=== PATIENT | male | born 1940 | race Caucasian/White ===

== ENCOUNTER 2016-09-25 17:54 | Emergency (ER) | payer MEDICARE, OTHER ==
[~2016-09-25] VITALS: Ht 193 cm; Wt 111.1 kg
[~2016-09-25 17:54] MED LIST: ASP325T NG; GLIP10TA13 PO; HYDR-34 PO; MTF500T PO; SERT100T8 PO
[2016-09-25] MEDS ORDERED: ASPI-586 PO (19:18)
[2016-09-25] MEDS ORDERED: ENAL20TA PO (19:18)
--- NOTE | 2016-09-25 19:54 | ED General ---
General Chief Complaint: Lower Extremity Stated Complaint: SWELLING IN L LEG, FOOT Nursing Triage Note: pt reports l foot swelling x 3 days. redness/heat noted to l foot. Nursing Sepsis Screen: No Definite Risk Source of Information: Patient Exam Limitations: No Limitations History of Present Illness Time Seen by Provider: 19:53 Initial Comments 76 yo male patient presents to the ED with c/o left foot pain, swelling, and erythema. onset 3 days ago. Location Injury Occurred: denies known injury Timing/Duration: 2-3 Days Modifying Factors: worse with Other (palpation) Allergies and Home Medications Allergies Coded Allergies: Iodinated Contrast Media - IV Dye (Unverified Adverse Reaction, Unknown, ) Home Medications Aspirin 81 Mg Tablet.dr 81 MG PO (Reported) Clindamycin HCl 300 Mg Capsule #40 300 MG PO Q6H Prescribed by: GERONIMO GANNON on 09/25/162118 Enalapril Maleate 20 Mg Tablet 20 MG PO DAILY (Reported) Glipizide 10 Mg Tablet 1 EACH PO DAILY (Reported) Metformin Hcl 500 Mg Tablet 1 EACH PO BID WITH MEALS (Reported) Oxycodone HCl/Acetaminophen 1 Each Tablet #14 1 EACH PO Q4H PRN PRN PAIN Prescribed by: GERONIMO GANNON on 09/25/162118 Sertraline Hcl 100 Mg Tablet 100 MG PO DAILY (Reported) Constitutional: chills fever malaise Respiratory: No cough, No dyspnea on exertion, No orthopnea, No short of breath , No wheezing Cardiovascular: No chest pain, No palpitations, No syncope Gastrointestinal: no symptoms reported Genitourinary: no symptoms reported Musculoskeletal: see HPI joint pain (lower extremity) Skin: see HPI change in color Psychiatric/Neurological: No Symptoms Reported All Other Systems Reviewed Negative Unless Noted: Yes (Negative excepted noted.) Past Ermmkpw-Svmqte-Ngberq Hx Patient Social History Alcohol Use: Denies Use Recreational Drug Use: No Smoking Status: Never a Smoker Recent Foreign Travel: No Contact w/Someone Who Travel: No Recent Infectious Disease Expo: No Recent Hopitalizations: No Physical Abuse Screen: No Sexual Abuse: No Immunizations Up To Date Date of Pneumonia Vaccine: Jan 04, 2016 Date of Influenza Vaccine: Jul 10, 2016 Seasonal Allergies Seasonal Allergies: No Surgeries HX Surgeries: Yes (hip sx) Surgeries: Orthopedic Respiratory Hx Respiratory Disorders: No Cardiovascular Hx Cardiac Disorders: Yes Cardiac Disorders: Hypertension Neurological Hx Neurological Disorders: No Genitourinary Hx Genitourinary Disorders: No Gastrointestinal Hx Gastrointestinal Disorders: No Musculoskeletal Hx Musculoskeletal Disorders: No Endocrine Hx Endocrine Disorders: Yes Endocrine Disorders: Diabetes, Non-Insulin dep HEENT HX ENT Disorders: No Cancer Hx Cancer: No Psychosocial Hx Psychiatric Problems: No Integumentary HX Skin/Integumentary Disorder: No Blood Transfusions Hx Blood Disorders: No Reviewed Nursing Assessment Reviewed/Agree w Nursing PMH: Yes Family Medical History Significant Family History: No Pertinent Family Hx Physical Exam Vital Signs Capillary Refill : Less Than 3 Seconds General Appearance: No Apparent Distress WD/WN Respiratory: Lungs Clear Normal Breath Sounds No Respiratory Distress Cardiovascular: Regular Rate, Rhythm No Murmur Normal Peripheral Pulses Extremity: Normal Capillary Refill Normal Range of Motion No Calf Tenderness Swelling (BLE with erythema, warmth, and soft tissue tenderness on exam.) Neurologic/Psychiatric: Alert Oriented x3 No Motor/Sensory Deficits Normal Mood/Affect Skin: No Cool, No Cyanosis, Erythema (left foot erythema, warmth, and ttp)No Mottled, No Petechia Progress/Results/Core Measures Results/Orders Lab Results My Orders Vital Signs/I&O Blood Pressure Mean: 111 Diagnostic Imaging Diagonstic Imaging: Xray Plain Films/CT/US/NM/MRI: other (left foot) Comments FINDINGS: 3 views of the left foot are obtained. No acute fracture or osseous destructive process is seen. There are chronic findings of the first metatarsophalangeal joint with joint space narrowing, spurring and subchondral cystic change. The overall appearance is similar to the prior study. Prominent spurring of the os calcis is also unchanged. No significant new osseous abnormality is demonstrated. IMPRESSION: Chronic findings of the first MTP joint and os calcis are similar to the prior exam. No new or acute osseous abnormality is suspected. Dictated by: Dictated on workstation # [id number] Reviewed: Reviewed by Me (radiology report reviewed by me.) Departure Communication Progress Notes All laboratory and diagnostic findings discussed with the patient. Plan for discharge to home with follow-up as an outpatient Dr. Koehler. Impression Impression: Primary Impression: Cellulitis of lower extremity Qualified Code: L03.116 - Cellulitis of left lower limb Disposition: 01 HOME, SELF-CARE Condition: Improved Departure-Patient Inst. Decision time for Depature: 21:16 Referrals: ELIOT KOEHLER MD (PCP/Family) Primary Care Physician Patient Instructions: Cellulitis (Skin Infection), Adult (DC) Add. Discharge Instructions: All discharge instructions reviewed with patient and/or family. Voiced understanding. Medications as directed. Continue usual home medications with the exception of hydrocodone. Do not take hydrocodone with the oxycodone. Elevate the left lower extremity on pillows. You may use an ice pack or heating pad if needed. Shower with antibacterial soap. Follow-up with Dr. Koehler in the next 1-2 days for recheck. Call for appointment time. Return to the emergency department for worsened symptoms or any other concerns. Scripts Oxycodone HCl/Acetaminophen (Percocet 5-325 mg Tablet)1 Each Tablet1 Each PO Q4H PRN PAIN #14 TAB Ref 0 Prov:GERONIMO GANNON 09/25/16 Clindamycin HCl (Cleocin HCl)300 Mg [id number] Mg PO Q6H #40 CAP Ref 0 Prov:GERONIMO GANNON 09/25/16 GERONIMO GANNON Sep 25, 2016 19:53 Monocytes (%) (Auto) 8 0-12 % Neutrophils # (Auto) 9.2 H 1.8-7.8 X 10^3 Neutrophils (%) (Auto) 82 H 42-75 % Platelet Count 135 130-400 10^3/uL Potassium Level 4.3 3.6-5.0 MMOL/L Red Blood Count 4.77 4.35-5.85 10^6/uL Red Cell Distribution Width 14.6 H 10.0-14.5 % Sodium Level 137 135-145 MMOL/L Total Bilirubin 2.0 H 0.1-1.0 MG/DL Total Protein 6.6 6.4-8.2 G/DL White Blood Count 11.1 H 4.3-11.0 10^3/uL My Orders Orders-GERONIMO GANNON Cbc With Automated Diff (09/25/16 19:50) Comprehensive Metabolic Panel (09/25/16 19:50) Hs C Reactive Protein (09/25/16 19:50) Saline Lock/Iv-Start (09/25/16 19:50) Foot, Left, 3 Views (09/25/16 19:50) Clindamycin 900 Mg/50 Ml Ivpb (Cleocin P (09/25/16 21:15) Vital Signs/I&O Vital Sign - Last 12Hours 09/25/16 19:10 Temp 100.7 Pulse 86 Resp 16 B/P 170/82 Pulse Ox 96 Blood Pressure Mean: 111 Departure Impression Impression: Primary Impression: Cellulitis of lower extremity Disposition: 01 HOME, SELF-CARE Condition: Improved Departure-Patient Inst. Decision time for Depature: 21:16 Referrals: ELIOT KOEHLER MD (PCP/Family) Primary Care Physician Patient Instructions: Cellulitis (Skin Infection), Adult (DC) Add. Discharge Instructions: All discharge instructions reviewed with patient and/or family. Voiced understanding. Medications as directed. Continue usual home medications with the exception of hydrocodone. Do not take hydrocodone with the oxycodone. Elevate the left lower extremity on pillows. You may use an ice pack or heating pad if needed. Shower with antibacterial soap. Follow-up with Dr. Koehler in the next 1-2 days for recheck. Call for appointment time. Return to the emergency department for worsened symptoms or any other concerns. Scripts Oxycodone HCl/Acetaminophen (Percocet 5-325 mg Tablet)1 Each Tablet1 Each PO Q4H PRN PAIN #14 TAB Ref 0 Prov:GERONIMO GANNON 09/25/16 Clindamycin HCl (Cleocin HCl)300 Mg [id number] Mg PO Q6H #40 CAP Ref 0 Prov:GERONIMO GANNON 09/25/16 GERONIMO GANNON Sep 25, 2016 19:53
[2016-09-25 19:57] LABS: BASOPHILS % (AUTO) 0 % (0-10); EOSINOPHILS % (AUTO) 0 % (0-10); LYMPHOCYTES # (AUTO) 1.1 X 10^3 (1.0-4.0); LYMPHOCYTES % (AUTO) 10 % (12-44); MEAN CORPUSCULAR HEMOGLOBIN 28 PG (25-34); MEAN CORPUSCULAR HGB CONC 33 G/DL (32-36); MEAN CORPUSCULAR VOLUME 83 FL (80-99); MEAN PLATELET VOLUME 12.3 FL (7.4-10.4); MONOCYTES # (AUTO) 0.8 X 10^3 (0.0-1.0); MONOCYTES % (AUTO) 8 % (0-12); NEUTROPHILS # (AUTO) 9.2 X 10^3 (1.8-7.8); NEUTROPHILS % (AUTO) 82 % (42-75); PLATELET COUNT 135 10^3/uL (130-400); RED BLOOD COUNT 4.77 10^6/uL (4.35-5.85); RED CELL DISTRIBUTION WIDTH 14.6 % (10.0-14.5); WHITE BLOOD COUNT 11.1 10^3/uL (4.3-11.0)
[2016-09-25 20:11] LABS: ALANINE AMINOTRANSFERASE 17 U/L (0-55); ALBUMIN 4.4 G/DL (3.2-4.5); ANION GAP 12 MMOL/L (5-14); ASPARTATE AMINO TRANSFERASE 18 U/L (5-34); BLOOD UREA NITROGEN 20 MG/DL (7-18); BUN/CREATININE RATIO 20; CALCIUM 9.1 MG/DL (8.5-10.1); CARBON DIOXIDE 21 MMOL/L (21-32); CHLORIDE 104 MMOL/L (98-107); CREATININE SERUM 1.01 MG/DL (0.60-1.30); GFR ESTIMATED > 60; GLUCOSE 115 MG/DL (70-105); POTASSIUM 4.3 MMOL/L (3.6-5.0); SODIUM 137 MMOL/L (135-145); TOTAL PROTEIN 6.6 G/DL (6.4-8.2); hs C REACTIVE PROTEIN 1.62 MG/DL (0.00-0.50)
--- NOTE | 2016-09-25 20:20 | Diagnostic Imaging Report ---
INDICATION: Foot redness and feels hot COMPARISON: 04/19/2012 FINDINGS: 3 views of the left foot are obtained. No acute fracture or osseous destructive process is seen. There are chronic findings of the first metatarsophalangeal joint with joint space narrowing, spurring and subchondral cystic change. The overall appearance is similar to the prior study. Prominent spurring of the os calcis is also unchanged. No significant new osseous abnormality is demonstrated. IMPRESSION: Chronic findings of the first MTP joint and os calcis are similar to the prior exam. No new or acute osseous abnormality is suspected. Dictated by: Dictated on workstation # [id number]
[2016-09-25] MEDS ORDERED: CLINDAMYCIN 150 MG (CLEOCIN) CAP PO ONE (21:15)
[2016-09-25] MEDS ORDERED: CLINDAMYCIN 900 MG/50 ML IVPB 50 ML IV ONE (21:15)
[2016-09-25] MEDS ORDERED: OXYC-197 PO (21:19)
[2016-09-25] MEDS ORDERED: CLIN300C3 PO (21:19)
[2016-09-25 21:32] VITALS: BP 156/87
== END 2016-09-25 21:32 | disposition home or self-care (01) ==
LOC: EDUNIT# 17:54 → ER 17:56
DX: L03.116 Cellulitis of left lower limb (principal); E11.9 Type 2 diabetes mellitus without complications; I10 Essential (primary) hypertension; Z79.82 Long term (current) use of aspirin; Z79.84 Long term (current) use of oral hypoglycemic drugs; Z79.899 Other long term (current) drug therapy
CPT/HCPCS: 36415; 73630; 80053; 85025; 86141

== ENCOUNTER 2016-11-20 08:57 | Outpatient (RCR) | payer MEDICARE, OTHER ==
[~2016-11-20 08:57] MED LIST changes: +ASPI-586 PO; +CLIN300C3 PO; +ENAL20TA PO; +OXYC-197 PO
== END 2016-11-20 16:00 | disposition home or self-care (01) ==
LOC: WOUNDCARE 08:57
PROVIDERS: ATTEND Surgery
DX: E11.621 Type 2 diabetes mellitus with foot ulcer (principal); E11.42 Type 2 diabetes mellitus with diabetic polyneuropathy; L97.513 Non-pressure chronic ulcer of other part of right foot with necrosis of muscle; L02.416 Cutaneous abscess of left lower limb
CPT/HCPCS: 11042; 11043; 15275; 29445; 87070; 87075; 87205; 99213

== ENCOUNTER 2017-04-18 09:17 | Outpatient (RCR) | payer MEDICARE, OTHER | END 2017-04-18 16:00 | disposition home or self-care (01) | LOC: WOUNDCARE 09:17 | PROVIDERS: ATTEND Surgery | DX: E11.621 Type 2 diabetes mellitus with foot ulcer (principal); E11.42 Type 2 diabetes mellitus with diabetic polyneuropathy; L97.522 Non-pressure chronic ulcer of other part of left foot with fat layer exposed | CPT/HCPCS: 11042; 99212 ==

== ENCOUNTER → 2017-07-25 | Outpatient (CLI) | payer MEDICARE, OTHER | LOC: WOUNDCARE 14:11 | PROVIDERS: ATTEND Surgery | DX: E11.621 Type 2 diabetes mellitus with foot ulcer (principal); L97.522 Non-pressure chronic ulcer of other part of left foot with fat layer exposed; E11.42 Type 2 diabetes mellitus with diabetic polyneuropathy; I70.245 Atherosclerosis of native arteries of left leg with ulceration of other part of foot | CPT/HCPCS: 11042; 87070; 87075; 87077; 87186; 87205 ==

== ENCOUNTER → 2017-07-26 | Outpatient (CLI) | payer MEDICARE, OTHER ==
--- NOTE | 2017-07-26 13:41 | Diagnostic Imaging Report ---
Three views of the left foot. INDICATION: Left foot ulcer near the left great toe. FINDINGS: The area marked at the site of the ulcer demonstrates expected soft tissue lucency with no bone erosion or periosteal reaction seen to suggest osteomyelitis. Lucency within the medial aspect of the head of the first metatarsal is favored to be degenerative related and is slightly more proximal to the site of the ulcer which better matches the proximal aspect of the proximal phalanx of the great toe. No fracture is seen. There is mild hallux valgus. There is also mild valgus deformity at the interphalangeal joint of the great toe. Prominent calcaneal spurs are seen and osteophytes are noted at the level of the tarsal and tarsometatarsal joints. IMPRESSION: Degenerative changes. No definite evidence of osteomyelitis. Dictated by: Dictated on workstation # [id number]
== END ==
LOC: RAD 09:41
PROVIDERS: ATTEND Surgery
DX: M19.072 Primary osteoarthritis, left ankle and foot (principal); L97.522 Non-pressure chronic ulcer of other part of left foot with fat layer exposed; E11.621 Type 2 diabetes mellitus with foot ulcer; E11.42 Type 2 diabetes mellitus with diabetic polyneuropathy; I70.245 Atherosclerosis of native arteries of left leg with ulceration of other part of foot
CPT/HCPCS: 73630

== ENCOUNTER → 2017-08-03 | Outpatient (CLI) | payer MEDICARE, OTHER | LOC: WOUNDCARE 08:04 | PROVIDERS: ATTEND Surgery | DX: E11.621 Type 2 diabetes mellitus with foot ulcer (principal); E11.42 Type 2 diabetes mellitus with diabetic polyneuropathy; L97.522 Non-pressure chronic ulcer of other part of left foot with fat layer exposed | CPT/HCPCS: 11042 ==

== ENCOUNTER → 2017-08-10 | Outpatient (CLI) | payer MEDICARE, OTHER | LOC: WOUNDCARE 08:00 | PROVIDERS: ATTEND Surgery | DX: E11.621 Type 2 diabetes mellitus with foot ulcer (principal); E11.42 Type 2 diabetes mellitus with diabetic polyneuropathy; L97.522 Non-pressure chronic ulcer of other part of left foot with fat layer exposed | CPT/HCPCS: 99212 ==

== ENCOUNTER → 2020-05-11 | Outpatient (CLI) | payer MEDICARE, OTHER ==
[~2020-05-11] MED LIST changes: -OXYC-197 PO; +OXYC1TAB87 PO
== END ==
LOC: RAD 09:38
DX: R53.1 Weakness (principal); R79.9 Abnormal finding of blood chemistry, unspecified

== ENCOUNTER 2020-05-19 13:42 | Outpatient (RCR) | payer MEDICARE, OTHER ==
[~2020-05-19 13:42] MED LIST changes: -ENAL20TA PO; +ENAL20TA16 PO
== END 2020-06-24 14:00 | disposition home or self-care (01) ==
PROVIDERS: ATTEND Family Medicine
DX: M62.81 Muscle weakness (generalized) (principal); R25.1 Tremor, unspecified